=== PATIENT | female | born 1940 | race Caucasian/White ===

== ENCOUNTER → 2025-03-31 | Day surgery (SDC) | payer MEDICARE, OTHER ==
[~2025-03-31] MED LIST: Propofol 200 MG/20 ML SDV ONE; Sodium Chloride 0.9% 10 ML Syringe FLUSH PRN; Sodium Chloride 0.9% 10 ML Syringe FLUSH SCH
[2025-03-31] MEDS: Lactated Ringers 1,000 ML IV SCH (06:20)
== END | disposition home or self-care (01) ==
LOC: JD.SDS 06:00
PROVIDERS: ATTEND Orthopaedic Surgery
DX: M65.332 Trigger finger, left middle finger (principal); I10 Essential (primary) hypertension; E78.5 Hyperlipidemia, unspecified; Z88.8 Allergy status to other drugs, medicaments and biological substances; Z88.1 Allergy status to other antibiotic agents; Z79.82 Long term (current) use of aspirin; Z79.899 Other long term (current) drug therapy
CPT/HCPCS: 26055; J0665; J2003; J2704; J7120; 01810; 99100